=== PATIENT | female | born 1950 | race Caucasian/White ===

== ENCOUNTER 2016-07-16 08:12 | Day surgery (SDC) | payer BC ==
[~2016-07-16 08:12] MED LIST: FENTANYL 250 MCG/5 ML AMP IV PRN; IV START KIT ONE; LACTATED RINGERS 1,000 ML IV SCH; MIDAZOLAM HCL 5 MG/5 ML VIAL IV PRN
--- NOTE | 2016-07-19 09:36 | SURGPATH ---
[facility] [address] [place] [id number] Patient Name: COURTNEY GREENBERG MR#: [id number] : 1950 Gender: F Specimen #: [id number] Collected: 07/16/2016 Received: 07/18/2016 Reported: 07/19/2016 Submitting Phys: KANDY YEAGER Copy To Phys: ASHLEY PITT [facility] Clinical History / Pre-Operative Diagnosis: Surveillance; family history of colon CA Specimen Source / Surgical Procedure Performed: Sigmoid polyp at 30 cm Interpretation: SIGMOID COLON, POLYP AT 30 CM, BIOPSY: - HYPERPLASTIC POLYP Electronically Signed Out Edwina Hobbs M.D. Gross Description: The specimen is received in a formalin filled container labeled with the patient's name and "sigmoid polyp at 30 cm". Two alvarez biopsies are each 0.2 cm. Totally embedded in one cassette. Jonatan Alejandro PSavannah Microscopic Description: Sections show fragments of hyperplastic colonic mucosa without dysplasia. 1: [id number] K63.5
== END 2016-07-16 10:15 | disposition home or self-care (01) ==
LOC: SDC 08:12
PROVIDERS: ATTEND Internal Medicine Gastroenterology
PROC: 0DBN8ZX Excision of Sigmoid Colon, Via Natural or Artificial Opening Endoscopic, Diagnostic (ICD-10-PCS; principal; 2016-07-16)
DX: Z12.11 Encounter for screening for malignant neoplasm of colon (principal); D12.5 Benign neoplasm of sigmoid colon; Z80.0 Family history of malignant neoplasm of digestive organs; Z79.82 Long term (current) use of aspirin; I10 Essential (primary) hypertension; I50.9 Heart failure, unspecified; M79.7 Fibromyalgia; E03.9 Hypothyroidism, unspecified; E78.5 Hyperlipidemia, unspecified; M19.90 Unspecified osteoarthritis, unspecified site; Z88.8 Allergy status to other drugs, medicaments and biological substances; Z88.2 Allergy status to sulfonamides; Z88.1 Allergy status to other antibiotic agents
CPT/HCPCS: 45380; J3010; J2250; J7120